=== PATIENT | male | born 1955 | race Caucasian/White ===

== ENCOUNTER 2017-05-13 19:54 | Emergency (ER) | payer BC ==
[2017-05-13 20:45] LABS: Bilirubin Negative (Negative); Blood, Urine Negative (Negative); Glucose, Urine (Dipstick) Negative (Negative); Ketone, Urine Negative (Negative); Nitrite Negative (Negative); Protein, Urine (Dipstick) Negative (Neg-Trace); Urobilinogen 0.2 mg/dL (0.2-1.0)
[2017-05-13 20:53] LABS: #Basophils 0.1 thou/uL (0.0-0.2); #Eosinphils 0.4 thou/uL (0.0-0.7); #Lymphocytes 0.9 thou/uL (1.20-3.40); #Monocytes 0.6 thou/uL (0.11-0.59); #Neutrophils 5.8 thou/uL (1.40-6.50); %Basophils 0.7 % (0.0-1.0); %Eosinophils 5.1 % (0.0-10.0); %Lymphocytes 11.6 % (21.0-51.0); %Monocytes 7.8 % (0.0-10.0); Hematocrit 36.4 % (42.0-52.0); Mean Platelet Volume 9.8 fL (7.4-10.4); Red Blood Cell (RBC) Count 4.09 mill/uL (4.70-6.10); White Blood Cell (WBC) Count 7.8 thou/uL (4.8-10.8)
[2017-05-13 21:09] LABS: Anion Gap 13 mmol/L (10-20); BUN (Urea Nitrogen) 13 mg/dL (8.4-25.7); Calc. Creatinine Clearance 0 mL/min (70-130); Calcium 9.5 mg/dL (7.8-10.44); Carbon Dioxide 27 mmol/L (22-29); Chloride 99 mmol/L (98-107); Estimated GFR-MDRD 74
== END 2017-05-13 22:16 | disposition home or self-care (01) ==
LOC: SCSER 19:54
DX: I10 Essential (primary) hypertension (principal); E78.5 Hyperlipidemia, unspecified; E87.6 Hypokalemia; Z79.899 Other long term (current) drug therapy
CPT/HCPCS: 36415; 80048; 81003; 85025; 93005

== ENCOUNTER 2017-05-28 14:35 | Outpatient (CLI) | payer BC ==
--- NOTE | 2017-05-28 15:58 | ULT ---
RENAL ULTRASOUND: History: Chronic kidney disease. Technique: Multiplanar grayscale and color doppler images were obtained in a renal ultrasound. FINDINGS: Both kidneys are normal in echogenicity without hydronephrosis or calculi and measures 9.0 and 11.2 c m in length, on the right and left respectively. Limited visualization of the urinary bladder is unre markable. Post void residual is 3 ml. IMPRESSION: No significant renal abnormality. POS: NATALIIA
== END 2017-05-28 14:36 | disposition home or self-care (01) ==
LOC: ULT 14:35
PROVIDERS: ATTEND Internal Medicine
DX: I12.9 Hypertensive chronic kidney disease with stage 1 through stage 4 chronic kidney disease, or unspecified chronic kidney disease (principal); N18.2 Chronic kidney disease, stage 2 (mild)
CPT/HCPCS: 76770

== ENCOUNTER 2017-06-04 07:18 | Outpatient (CLI) | payer BC ==
[2017-06-04 08:14] LABS: Anion Gap 12 mmol/L (10-20); BUN (Urea Nitrogen) 17 mg/dL (8.4-25.7); Calc. Creatinine Clearance 0 mL/min (70-130); Calcium 9.4 mg/dL (7.8-10.44); Carbon Dioxide 28 mmol/L (22-29); Chloride 99 mmol/L (98-107); Estimated GFR-MDRD 58
--- NOTE | 2017-06-04 09:09 | CT ---
CT ABDOMEN AND PELVIS WITH AND WITHOUT CONTRAST: HISTORY: Adrenal mass protocol. Hypertension, abnormal hormones, and blood. COMPARISON: None. FINDINGS: There are nonobstructing bilateral renal calculi. Within the right lateral limb adrenal gland is a m ass which measures 23 Hounsfield units on the precontrast, 62 Hounsfield units on the postcontrast, a nd 41 Hounsfield units on the delayed sequence. No pericardial effusion. There are multiple too small to characterize hypodensities of the kidneys. The spleen is unremarkable. No dilated loops of large or small bowel in the upper abdomen. Pancreas is unremarkable. The liver is unremarkable. The gallbladder is unremarkable. There is an abnormal mass within the renal collecting systems. IMPRESSION: 1. 0.8 cm mass lateral limb of the right adrenal gland is indeterminate and not diagnostic of adenom a. Given patient history, pheochromocytoma is within the differential. 2. Too small to characterize hypodensities of both the kidneys. 3. No acute inflammatory process in the abdomen. 4. Nonobstructive bilateral renal calculi. CODE: Kojo POS: NATALIIA
[2017-06-04] MEDS ORDERED: Iopamidol 370 76% 100 ML VIAL ONE (11:58)
== END 2017-06-04 07:19 | disposition home or self-care (01) ==
LOC: CT 07:18
PROVIDERS: ATTEND Internal Medicine Nephrology
DX: N18.2 Chronic kidney disease, stage 2 (mild) (principal); N20.0 Calculus of kidney
CPT/HCPCS: 36415; 74170; 80048